=== PATIENT | male | born 1960 | race Caucasian/White ===

== ENCOUNTER 2017-07-12 10:31 | Emergency (ER) | payer MEDICARE ==
[2017-07-12] MEDS ORDERED: 0.9 % SODIUM CHLORIDE 1,000 ML BAG IV ONE (10:44)
[2017-07-12] MEDS ORDERED: ONDANSETRON HCL IV 4 MG/2 ML VIAL IVP ONE (10:52)
--- NOTE | 2017-07-12 10:53 | Emergency Department Record ---
History of Present Illness - General Chief Complaint: Abdominal Pain Stated Complaint: ABD PAIN Time Seen by Provider: 07/12/17 10:43 Source: Patient Mode of Arrival: Ambulatory Limitations: No limitations - History of Present Illness Initial Comments: 56 yo male presents with abdominal pain. The pain started started about 6 weeks ago. The onset included nausea, vomiting and loose stools. The symptoms initially came and went but over time became fairly constant. The last two weeks he has had very minimal appetite and any eating causes pain, nausea, vomiting. He is having stools daily with frequency. In the morning the stools seemed formed then become loose later in the day. He had his gall bladder removed about 5 years ago at [facility]. PCP is Blanca. Gall bladder was removed in [address] Gastelum. Complaint: Abdominal pain Onset/Timin -: Week(s) (6) Location: Diffuse Radiation: None Migration to: No migration Quality: Aching, Dull, Sharp, Stabbing Consistency: Constant Improves With: Nothing Worsens With: Eating Associated Symptoms: Diarrhea, Nausea, Vomiting - Related Data Home Medications Medication Instructions Recorded Confirmed Last Taken Baclofen [Lioresal] 10 mg PO DAILY PRN 07/12/17 07/12/17 Unknown Hydrocodone/Acetaminophen [Byars 1 each PO Q6H PRN 07/12/17 07/12/17 Unknown 10-325 Tablet] Allergies Allergy/AdvReac Type Severity Reaction Status Date / Time No Known Drug Allergies Allergy Verified 07/12/17 10:42 Travel Screening - Travel/Exposure Within Last 30 Days Have you traveled within the last 30 days?: No Review of Systems Constitutional: Reports: Malaise. Denies: Chills, Fever, Weakness Eyes: Denies: Eye discharge ENT: Denies: Congestion, Throat pain Respiratory: Denies: Cough, Dyspnea, Hemoptysis, Stridor, Wheezes Cardiovascular: Denies: Chest pain, Palpitations, Syncope Endocrine: Reports: Fatigue Gastrointestinal: Reports: As per HPI, Abdominal pain, Diarrhea, Nausea, Vomiting. Denies: Hematemesis, Hematochezia Genitourinary: Denies: Dysuria, Frequency Musculoskeletal: Reports: Arthralgia, Back pain Skin: Denies: Bruising, Change in color Neurological: Denies: Confusion, Headache, Numbness, Vertigo, Weakness Psychiatric: Denies: Anxiety Hematological/Lymphatic: Denies: Blood Clots, Easy bleeding, Easy bruising, Swollen glands Past Medical History - SOCIAL HISTORY Smoking Status: Current every day smoker Alcohol Use: Rare Drug Use: None - RESPIRATORY Hx Respiratory Disorders: Yes Hx Pneumonia: Yes Comment:: Left lung collapse - CARDIOVASCULAR Hx Cardio Disorders: No - NEURO Hx Neuro Disorders: No - GI Hx GI Disorders: No - Hx Genitourinary Disorders: No - ENDOCRINE Hx Endocrine Disorders: No - MUSCULOSKELETAL Hx Musculoskeletal Disorders: Yes Hx Back Injury: Yes - PSYCH Hx Psych Problems: No - HEMATOLOGY/ONCOLOGY Hx Hematology/Oncology Disorders: No Family Medical History Any Significant Family History?: Yes Hx Cancer: Grandparents Hx Diabetes: Brother/Sister Hx Heart Disease: Father Hx HTN: Mother Physical Exam - General General Appearance: Alert, Oriented x3, Cooperative, No acute distress Limitations: No limitations - Head Head exam: Atraumatic, Normocephalic, Normal inspection - Eye Eye exam: Normal appearance. negative: Conjunctival injection, Periorbital swelling - ENT ENT exam: Normal exam, Mucous membranes moist Ear exam: Normal external inspection Nasal Exam: Normal inspection Mouth exam: Normal external inspection - Neck Neck exam: Normal inspection - Respiratory Respiratory exam: Normal lung sounds bilaterally. negative: Respiratory distress - Cardiovascular Cardiovascular Exam: Normal rhythm, Normal heart sounds, Tachycardia Peripheral Pulses: 2+: Radial (R), Radial (L) - GI/Abdominal GI/Abdominal exam: Soft, Diminished bowel sounds (decreaed but present), Distended (softly distended and diffusely tender), Tenderness. negative: Mass, Rigid - Rectal Rectal exam: Deferred - exam: Deferred - Extremities Extremities exam: Normal inspection, Full ROM, Normal capillary refill. negative: Tenderness - Back Back exam: Reports: Normal inspection, Full ROM. Denies: Muscle spasm, Rash noted, Tenderness - Neurological Neurological exam: Alert, Normal gait, Oriented X3 - Psychiatric Psychiatric exam: Normal affect, Normal mood - Skin Skin exam: Dry, Intact, Normal color, Warm Course Vital Signs 07/12/17 10:36 Temperature 97.7 F Pulse Rate 116 H Respiratory 20 Rate Blood Pressure 136/93 Pulse Ox 97 - Reevaluation(s) Reevaluation #1: The labs were reviewed The CBC demonstrated a WBC of 8.4 with a Hgb of 11.8 The CMP demonstrated a K of 3.4, Normal AST, ALT and Alk Phos. The TBili was 1.6 with DBili of 0.6 The lipase was elevated at 220. Serum Glucose is 111. 07/12/17 11:[address] scan was reviewed. There are findings for cirrhosis, colitis, with moderate ascites. 07/12/17 14:06 07/12/17 14:42 I MICHAEL Martinez of at [facility] He accepts the patient for transfer and further work up for hsi new onset ascites. 07/12/17 14:53 Stool studies were negative and No WBC's noted as well. 07/12/17 14:53 PT/PTT Pending. 07/12/17 15:49 INR is 1.96 Medical Decision Making - Lab Data Result diagrams: 07/12/17 10:55 07/12/17 10:55 Disposition Disposition: Transfer Clinical Impression: Diarrhea Abdominal pain Qualifiers: Abdominal location: unspecified location Qualified Code(s): R10.9 - Unspecified abdominal pain Pancreatitis Qualifiers: Pancreatitis type: unspecified pancreatitis type Acute pancreatitis complication: unspecified Ascites Qualifiers: Ascites type: other type Qualified Code(s): R18.8 - Other ascites Disposition: Acute Care Hospital Transfer Transfer To: [facility] Reason For Transfer: New ascites, consultations, VAZQUEZ Accepting Physician: Juan Time Discussed w/Accepting Physician: 14:41 Condition: (1) Good Forms: Patient Portal Access Time of Disposition: 14:09 Quality - Quality Measures Quality Measures: N/A - Blood Pressure Screening Does Patient Have Any of the Following: No Blood Pressure Classification: Normal BP Reading Systolic Measurement: 108 Diastolic Measurement: 74 Screening for High Blood Pressure: < Normal BP, F/U Not Required > [G8783] Pre-Hypertensive Follow-up Interventions: Referral to alternative/primary care provider.
[2017-07-12 11:07] LABS: HEMATOCRIT 33.7 % (42.0-52.0); HEMOGLOBIN 11.5 gm/dl (14.0-18.0); MEAN CORPUSCULAR HGB CONC 34.1 g/dl (32-36); MEAN PLATELET VOLUME 9.5 fl (7.4-10.4); PLATELET COUNT 285 K/uL (130-400); RED BLOOD COUNT 3.18 M/uL (4.40-5.70); RED CELL DISTRIBUTION WIDTH 14.5 % (11.5-14.5); WHITE BLOOD COUNT W/O DIFF 8.4 K/uL (4.2-12.2)
[2017-07-12 11:09] LABS: MEAN CORPUSCULAR HEMOGLOBIN 36.1 pg (27-33)
[2017-07-12 11:15] LABS: PLATELET ESTIMATE NORMAL (NORMAL)
[2017-07-12 11:22] LABS: ALBUMIN 2.3 g/dL (4.0-5.0); ALKALINE PHOSPHATASE 123 U/L (40-129); ALT/SGPT 13 U/L (<41); AST/SGOT 30 U/L (10.0-50.0); BILIRUBIN,DIRECT 0.6 mg/dL (0-0.3); BLOOD UREA NITROGEN 7 mg/dL (6-20); CREATININE 0.4 mg/dL (0.7-1.2); EST GLOMERULAR FILTRATION RATE > 60 mL/min; GLUCOSE,RANDOM 111 mg/dL (74-109); LIPASE 220 U/L (13-60); TOTAL PROTEIN 7.2 g/dL (6.6-8.7)
[2017-07-12 12:09] LABS: CRYPTOSPORIDIUM PARVUM ANTIGEN NOT DETECTED (NOT DETECT); GIARDIA LAMBLIA ANTIGEN NOT DETECTED (NOT DETECT); ROTOVIRUS NOT DETECTED (NOT DETECT)
[2017-07-12 13:51] LABS: MOLECULAR C DIFF TOXIN SCREEN NOT DETECTED (NOT DETECT)
[2017-07-12 14:49] LABS: PARTIAL THROMBOPLASTIN TIME 26.3 SECONDS (24.5-39.1)
[2017-07-12 16:01] LABS: PROTHROMBIN TIME (PATIENT) 21.3 SECONDS (9.5-12.1)
[2017-07-12 16:02] LABS: INR 1.96
--- NOTE | 2017-07-13 14:12 | CT SCAN REPORT ---
EXAM: CT OF THE ABDOMEN AND PELVIS WITH CONTRAST HISTORY: GENERALIZED ABDOMINAL PAIN WITH DIARRHEA FOR SIX WEEKS. BLOATING. TECHNIQUE: Following oral and intravenous contrast administration, helical CT examination of the abdomen and pelvis was performed including delayed images through the kidneys with 100 ml of Omnipaque 300 utilized. Comparison: None. FINDINGS: There is minor linear scarring versus atelectasis in each lung base, left slightly greater than right. No pleural or pericardial effusion. The heart is not enlarged. A small hiatal hernia is present. There is a large volume of ascites with fluid in all four quadrants. The liver has a somewhat heterogeneous appearance and there may be mild micronodularity of the hepatic margins. Cirrhosis is possible. No definite focal hepatic mass is, however, seen. The spleen is not enlarged. There are calcifications scattered throughout the pancreas most pronounced in the pancreatic head where the largest calcification measures 15 mm. There is associated moderate to severe segmental dilatation of the pancreatic duct at the level of the head and neck. These findings are suspicious for chronic calcific pancreatitis. No gross biliary ductal dilatation is, however, seen with the common hepatic duct measuring 6.5 mm. The gallbladder is surgically absent. The adrenal glands and left kidney are normal in appearance. A small hypodense mass arising exophytically from the lateral mid to lower kidney is demonstrated , this measures 9.5 mm in diameter. It is too small for accurate characterization, but likely is a cyst. No gross intraabdominal nor retroperitoneal lymphadenopathy. There is mild atherosclerosis without aneurysmal dilatation of the abdominal aorta nor iliac arteries. A retroaortic left renal vein is present. No definite pelvic mass nor adenopathy. A somewhat oval/tubular calcific density is present in the right hemipelvis measuring 1.4 cm in diameter x 2.4 cm in length. This is likely a benign process. No intrinsic urinary bladder abnormality is seen though evaluation is limited by lack of distention. There is apparent mild wall thickening throughout the colon most pronounced in the sigmoid region raising suspicion for colitis. No extraluminal air is, however, seen. The appendix is visualized and normal in appearance. No gross bowel dilatation is seen nor worrisome air fluid level. No lytic or blastic bone lesion. There are posterior fusion changes involving the lower lumbar spine/lumbosacral junction. IMPRESSION: 1. LARGE VOLUME OF ASCITES. 2. APPARENT MILD WALL THICKENING THROUGHOUT THE COLON SUSPICIOUS FOR NONSPECIFIC COLITIS. 3. THE LIVER APPEARS SOMEWHAT HETEROGENEOUS WITH QUESTIONABLE MICRONODULAR MARGINS. THESE FINDINGS ARE SUSPICIOUS FOR CIRRHOSIS. NO SPLENOMEGALY THOUGH THERE MAY BE A FEW VARICES WITHIN THE LEFT UPPER QUADRANT. 4. ABNORMAL APPEARANCE OF THE PANCREAS, DETAILED ABOVE LIKELY RELATING TO CHRONIC CALCIFIC PANCREATITIS. 5. TOO SMALL TO CHARACTERIZE HYPODENSE LESION WITHIN THE RIGHT KIDNEY IS NONSPECIFIC, BUT LIKELY A CYST. 6. SMALL HIATAL HERNIA. JOB NUMBER: [id number] [facility]
== END 2017-07-12 16:21 | disposition short-term general hospital (02) ==
LOC: ER 10:31
DX: K85.90 Acute pancreatitis without necrosis or infection, unspecified (principal); R18.8 Other ascites; R11.2 Nausea with vomiting, unspecified; R19.7 Diarrhea, unspecified; R10.84 Generalized abdominal pain; Z79.899 Other long term (current) drug therapy
CPT/HCPCS: 99285 ×2; 96374; 83690; 87329; 85730; 85610; 80076; 80048; 89055; 87425; 82272; 87493; 85027; 74177; G0480; Q9967; J2405; 80320; J7030

== ENCOUNTER 2017-11-05 15:37 | Emergency (ER) | payer MEDICARE, MEDICAID ==
[2017-11-05] MEDS ORDERED: LIDOCAINE UROJECT 10 ML APPL MM ONE (16:10)
--- NOTE | 2017-11-05 16:10 | Emergency Department Record ---
History of Present Illness - General Chief complaint: Male Urogenital Problem Stated complaint: UTI? Time Seen by Provider: 11/05/17 15:45 Source: Patient Mode of Arrival: Ambulatory Limitations: No limitations - History of Present Illness Initial comments: The patient is here due to being unable to urinate for 3 days. He also is weaker than normal but denies any fever, chills, nausea, vomiting, or diarrhea. He does have a hx of liver dz and cirrhosis and did have a paracentesis yesterday at [facility]. The patient also had it done a month ago and was told he had a UTI at that time and did receive a week of macrobid. Complaint: Other Onset/Timin -: Days(s) Reports: Incontinence, Urinary retention - Related Data Home Medications Medication Instructions Recorded Confirmed Last Taken Methadone HCl 10 mg PO ASDIR 11/05/17 11/05/17 11/05/17 Omeprazole Magnesium [Prilosec Otc] 20 mg PO QHS 11/05/17 11/05/17 11/04/17 Prednisone [Prednisone 10Mg] 10 mg PO DAILY 11/05/17 11/05/17 11/04/17 Promethazine HCl [Phenergan] 25 mg PO ASDIR 11/05/17 11/05/17 Unknown Spironolactone [Aldactone] 100 mg PO DAILY 11/05/17 11/05/17 11/05/17 Allergies Allergy/AdvReac Type Severity Reaction Status Date / Time No Known Drug Allergies Allergy Verified 11/05/17 17:02 Travel Screening - Travel/Exposure Within Last 30 Days Have you traveled within the last 30 days?: No - Travel/Exposure Within Last Year Have you traveled outside the [place] in the last year?: No - Additonal Travel Details Have you been exposed to anyone with a communicable illness?: No - Travel Symptoms Symptom Screening: None Review of Systems Constitutional: Reports: Malaise. Denies: Chills, Fever Eyes: Denies: Eye discharge ENT: Denies: Congestion Respiratory: Denies: Cough, Dyspnea Past Medical History - SOCIAL HISTORY Smoking Status: Current every day smoker Alcohol Use: None Drug Use: Rare Drug Use Detail:: Marijuana - RESPIRATORY Hx Respiratory Disorders: Yes Hx Pneumonia: Yes Comment:: Left lung collapse - CARDIOVASCULAR Hx Cardio Disorders: No - NEURO Hx Neuro Disorders: No - GI Hx GI Disorders: Yes Hx Pancreatitis: Yes Comment:: possible cirrhosis - Hx Genitourinary Disorders: No - ENDOCRINE Hx Endocrine Disorders: No - MUSCULOSKELETAL Hx Musculoskeletal Disorders: Yes Hx Back Injury: Yes - PSYCH Hx Psych Problems: No - HEMATOLOGY/ONCOLOGY Hx Hematology/Oncology Disorders: No Family Medical History Any Significant Family History?: No Hx Cancer: Grandparents Hx Diabetes: Brother/Sister Hx Heart Disease: Father Hx HTN: Mother Physical Exam - General General Appearance: Alert, Oriented x3, Cooperative, No acute distress - Head Head exam: Atraumatic, Normocephalic, Normal inspection - Eye Eye exam: Normal appearance, PERRL - Neck Neck exam: Normal inspection, Full ROM. negative: Tenderness - Respiratory Respiratory exam: Normal lung sounds bilaterally. negative: Respiratory distress - Cardiovascular Cardiovascular Exam: Regular rate, Normal rhythm, Normal heart sounds, Tachycardia - GI/Abdominal GI/Abdominal exam: Soft, Normal bowel sounds. negative: Distended, Guarding, Hypoactive bowel sounds, Rigid, Tenderness - Extremities Extremities exam: Full ROM, Normal capillary refill. negative: Normal inspection (There is swelling to the R forearm where yesterday's IV was but there is no tenderness or warmth.), Tenderness - Neurological Neurological exam: Alert. negative: Motor sensory deficit Course Vital Signs 11/05/17 15:39 Temperature 98.1 F Pulse Rate 134 H Respiratory 20 Rate Blood Pressure 112/62 Pulse Ox 98 - Reevaluation(s) Reevaluation #1: The patient is doing much better at this time. His Vazquez did drain about 600 mls of urine and he is feeling much better. I did explain to him that his lab work indicates a significant infection and did recommend hospital admission to [facility] and the patient and family agreed. 11/05/17 17:19 Reevaluation #2: The patient is doing well at this time. He feels much better with the Vazquez catheter in place. I did discuss the case with Dr. Roa at [facility] and he does accept the patient in transfer. 11/05/17 17:38 Medical Decision Making - Data Complexity MDM Data: Labs Ordered and/or Reviewed, X-Ray Ordered and/or Reviewed, EKG Ordered and/or Reviewed - Lab Data Result diagrams: 11/05/17 16:30 11/05/17 16:30 - EKG Data -: EKG Interpreted by Me EKG: No Acute Changes (Sinus Tach at 125. Neg ischemic ST changes.) - Radiology Data Radiology results: Report reviewed (CXR: R pleural effusion.) Disposition Disposition: Transfer Clinical Impression: Sepsis Qualifiers: Sepsis type: sepsis due to unspecified organism Qualified Code(s): A41.9 - Sepsis, unspecified organism Disposition: Acute Care Hospital Transfer Transfer To: [facility] Reason For Transfer: Urosepsis Accepting Physician: Crispin Time Discussed w/Accepting Physician: 17:40 Condition: (2) Stable Forms: Patient Portal Access Time of Disposition: 17:40 Quality - Quality Measures Quality Measures: N/A - Blood Pressure Screening View Details: Yes Does Patient Have Any of the Following: No Blood Pressure Classification: Pre-Hypertensive BP Reading Systolic Measurement: 124 Diastolic Measurement: 68 Screening for High Blood Pressure: < Pre-Hypertensive BP, F/U Documented > [ G8950] Pre-Hypertensive Follow-up Interventions: Referral to alternative/primary care provider.
[2017-11-05] MEDS ORDERED: 0.9 % SODIUM CHLORIDE 1,000 ML BAG IV ONE ×3 (16:25→18:37)
[2017-11-05 16:39] LABS: HEMATOCRIT 28.8 % (42.0-52.0); HEMOGLOBIN 9.6 gm/dl (14.0-18.0); MEAN CORPUSCULAR HGB CONC 33.3 g/dl (32-36); MEAN PLATELET VOLUME 8.9 fl (7.4-10.4); PLATELET COUNT 314 K/uL (130-400); RED CELL DISTRIBUTION WIDTH 16.1 % (11.5-14.5)
[2017-11-05 16:41] LABS: URINE APPEARANCE SL CLOUDY; URINE BILIRUBIN NEGATIVE (NEGATIVE); URINE BLOOD TRACE-I (NEGATIVE); URINE COLOR YELLOW; URINE GLUCOSE (UA) NEGATIVE (NEGATIVE); URINE KETONE NEGATIVE (NEGATIVE); URINE LEUKOCYTE ESTERASE NEGATIVE (NEGATIVE); URINE NITRITE NEGATIVE (NEGATIVE); URINE PROTEIN NEGATIVE (NEGATIVE); URINE UROBILINOGEN 0.2 E.U./dL (0.20 - 1.00)
[2017-11-05 16:48] LABS: WHITE BLOOD COUNT W/O DIFF 35.1 K/uL (4.2-12.2)
[2017-11-05 16:52] LABS: URINE BACTERIA 4+; URINE EPITHELIAL CELLS 0 - 2 (FEW); URINE RBC 0 - 2 (NONE SEEN); URINE WBC 0 - 2 (0-2/hpf)
[2017-11-05] MEDS ORDERED: CEFTRIAXONE SODIUM 1 GM in 0.9 % SODIUM CHLORIDE 100ML 100 ML IVPB ONE (16:56)
[2017-11-05 16:59] LABS: INR 1.2; PARTIAL THROMBOPLASTIN TIME 30.9 SECONDS (24.5-39.1); PROTHROMBIN TIME (PATIENT) 12.7 SECONDS (9.5-12.1)
[2017-11-05 17:09] LABS: BLOOD UREA NITROGEN 13 mg/dL (6-20); CREATININE 0.8 mg/dL (0.7-1.2); EST GLOMERULAR FILTRATION RATE > 60 mL/min
[2017-11-05 17:10] LABS: TOTAL PROTEIN 6.6 g/dL (6.6-8.7)
[2017-11-05 17:12] LABS: GLUCOSE,RANDOM 111 mg/dL (74-109)
[2017-11-05 17:14] LABS: ALT/SGPT 23 U/L (<41); BILIRUBIN,DIRECT 0.4 mg/dL (0-0.3)
[2017-11-05 17:15] LABS: ALBUMIN 2.3 g/dL (4.0-5.0); ALKALINE PHOSPHATASE 137 U/L (40-129); AST/SGOT 65 U/L (10.0-50.0)
[2017-11-05] MEDS ORDERED: LEVOFLOXACIN 500MG IVPB 500 MG/100 ML BAG IVPB ONE (18:01)
--- NOTE | 2017-11-06 15:22 | RADIOLOGY REPORT ---
DATE: 11/05/2017. EXAM: TWO-VIEW, CHEST. HISTORY: Difficulty breathing. COMPARISON: 05/13/2016 initial. TECHNIQUE: Frontal and lateral views of the chest were performed. FINDINGS: Heart size is normal. There are bilateral lower lobe infiltrates. Findings are improved when compared to the prior examination dated 05/13/2016. IMPRESSION: BILATERAL LOWER LOBE INFILTRATES. FINDINGS ARE IMPROVED WHEN COMPARED TO THE PRIOR EXAMINATION. JOB NUMBER: [id number] MTDD
== END 2017-11-05 19:19 | disposition short-term general hospital (02) ==
LOC: ER 15:37
DX: A41.9 Sepsis, unspecified organism (principal); R33.9 Retention of urine, unspecified; R06.00 Dyspnea, unspecified; R53.1 Weakness; K74.60 Unspecified cirrhosis of liver; F17.210 Nicotine dependence, cigarettes, uncomplicated
CPT/HCPCS: 71046; 80048; 80076; 81001; 82140; 85027; 85610; 85730; 93005; 93010; 96365; 96366; 96368; 99285; J1956; J7030

== ENCOUNTER 2019-03-15 10:21 | Day surgery (SDC) | payer MEDICARE ==
--- NOTE | 2019-03-15 06:49 | History and Physical - Ferro ---
CHIEF COMPLAINT/HISTORY OF CHIEF COMPLAINT: This patient presents with a history of a post lumbar laminectomy radiculopathy. Due to the failure of all therapy, a spinal cord stimulator trial was conducted on 02/21/19 with 75-95% pain control. Due to the failure of all other therapies and the success of the trial, the patient presents today for implantation of a permanent system. PAST MEDICAL HISTORY: Chronic headaches and degenerative arthritis. PAST SURGICAL HISTORY: Foot surgery, lumbar spinal surgery, gallbladder surgery, hand surgery, and eye surgery. EMPLOYMENT STATUS: Not identified. MEDICATIONS ON ADMISSION: List to be provided. ALLERGIES: None. FAMILY/PSYCHOSOCIAL HISTORY: Social history - Caffeine. Family history - Noncontributory. SYSTEMS REVIEW: The patient seems appropriate in no acute distress. PHYSICAL EXAMINATION: Height is 6'1", weight is 140. No vital signs. HEENT: Within normal limits. LUNGS: Clear. HEART: Rapid and regular. ABDOMEN: Nontender. MUSCULOSKELETAL: Examination of the musculoskeletal system shows diffuse tenderness throughout the lumbar spine. Range of motion produces pain across the back adjacent to the laminectomy scar. Range of motion produces pain into both legs across the front and back surface. There are mild motor and sensory abnormalities to both legs. Ambulation - No assistive device utilized. NEUROLOGIC: Cranial nerves are intact. 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 PLAN: After the failure of all other therapies and the success of the stimulator trial, the patient presents today for implantation of a permanent system. The procedure will be considered outpatient although an overnight stay will be evaluated. The potentials risks, side effects and complications have all been carefully reviewed and discussed. J[facility]: [id number] [facility]
[~2019-03-15 10:21] MED LIST: CEFAZOLIN 2 Gram 2 GM/50 ML BAG IVPB ONE; FAMOTIDINE 20MG TABLET PO ONE; MECLIZINE 25 MG TABLET PO ONE; METOCLOPRAMIDE 10 MG TABLET PO ONE
[2019-03-15] MEDS ORDERED: LIDOCAINE 2% MDV (20MG/ML) 20ML VIAL IV ONE (10:22)
[2019-03-15] MEDS ORDERED: PROPOFOL 10 MG/ML VIAL IV ONE (10:22)
[2019-03-15] MEDS ORDERED: ESMOLOL HCL 100 MG/10 ML ML IVP ONE (10:22)
[2019-03-15] MEDS ORDERED: FENTANYL PF 100MCG/2ML VIAL IV ONE (10:22)
[2019-03-15] MEDS ORDERED: MIDAZOLAM HCL 2MG/2ML VIAL IV ONE (10:22)
[2019-03-15] MEDS ORDERED: RINGERS SOLUTION,LACTATED 1,000 ML IV ONE (11:07)
[2019-03-15 11:08] LABS: INR 1.1; PARTIAL THROMBOPLASTIN TIME 26.3 SECONDS (24.5-39.1)
[2019-03-15] MEDS ORDERED: CEFAZOLIN 0.5 G in 0.9 % SODIUM CHLORIDE 1000ML 500 ML IVP ONE (12:41)
[2019-03-15] MEDS ORDERED: BUPIVACAINE 0.5% W/EPI MPF 30 ML VIAL SQ ONE (12:52)
[2019-03-15] MEDS ORDERED: LIDOCAINE 1% W/EPI 1:100,000 MDV 20 ML VIAL SQ ONE (12:52)
[2019-03-15] MEDS ORDERED: OXYCODONE/APAP 10MG-325MG TABLET PO ONE (14:09)
--- NOTE | 2019-03-17 12:41 | RADIOLOGY REPORT ---
EXAM: THORACOLUMBAR SPINE, ONE VIEW HISTORY: STATUS POST SPINAL CANAL STIMULATOR IMPLANT. TECHNIQUE: A single AP portable supine view of the spine was obtained including the thoracic and upper lumbar portions. Comparison: Two views of the thoracic spine dated 02/28/19. FINDINGS: There are two intraspinal stimulator leads in place. These likely enter the spinal canal at the L1 level. The lead tips project at the superior T7 vertebral body level. No acute osseous abnormality identified. No lytic or blastic bone lesion. There are degenerative changes scattered throughout the visualized spine. IMPRESSION: TWO INTRASPINAL STIMULATOR LEADS IN PLACE WITH LEAD TIPS AT THE UPPER T7 LEVEL. JOB NUMBER: [id number] MTDD
--- NOTE | 2019-03-20 08:50 | Operative Note ---
DATE OF SERVICE: 03/15/2019. DATE OF SURGERY: 03/15/2019. PRIMARY: Michael Franco Jr., MD. 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 OPERATION: 1. Fluoroscopic-guided epidural access, left T11-12, placement of spinal cord stimulator Lead 1, [employer] Infinion 16, 6 electrodes, positioned left T7. 2. Fluoroscopic-guided epidural access, left T12-L1, placement of spinal cord stimulator Lead 2, [employer] Infinion 16, 6 electrodes, positioned right T7. 3. Complex programming of Lead 1 over 20 minutes, followed by complex programming of Lead 2 over 20 minutes. 4. Incision, sub dissection, anchoring Lead 1 and Lead 2 to supraspinous fascia with a [employer] locking anchor and nonabsorbable suture. 5. Incision, subcutaneous dissection, and creation of subcutaneous pouch at left posterior gluteal margin for placement of generator, identified as [employer] programmable, rechargeable WaveWriter. 6. Tunneling between lead pouch and generator pouch, placement of the external portion of Lead 1 and Lead 2 into generator pouch, each lead interfaced to generator. 7. Closure of both incisions with generator placed into pouch, leads placed into the pouch, using Stratafix suture, 2-0 fascia, 3-0 skin, Dermabond closure. 8. Complex recovery room programming, internal generator, home use, 2 stimulators, 20 minutes. SURGEON: Jean Jarquin DO. ANESTHESIA: Local sedation. ANESTHESIA PROVIDER: Christiano Gupta C.R.N.A INDICATION: This patient presents with a history of an intractable post lumbar laminectomy syndrome with a radiculopathy. Due to the failure of all therapies, a spinal cord stimulator trial was conducted with 75-85% pain control. Due to the failure of all therapy and the success of the trial, the patient presents today for implantation of a permanent system. PROCEDURE: Intravenous line, vital sign monitoring, IV sedation, prepped and draped, sterile technique. Patient positioned prone. Sterile prep, sterile technique. Under imaging, the epidural interspace from left of the midline at 11-12 and 12-1 were both identified, marked, and infiltrated using 2 separate curved access Epimed needles. With loss of resistance, the space was accessed. Atraumatic. No blood. No CSF. At T11-12, spinal cord stimulator Lead 1, a [employer] Infinion 16, 6 electrodes positioned left of midline at T7. With the access at 12-1, spinal cord stimulator Lead 2, also a [employer] Infinion 16 with 6 electrodes, was positioned right of the midline at T7. Complex programming of Lead 1 over 20 minutes, followed by complex programming of Lead 2 over 20 minutes resulted in complete pattern stimulation across the back, into the legs. Patient indicated we hit all the areas of the pain. He was given the option to implant, continue to program, or remove. He opted to implant. Question was repeated with the same response. The skin above and below both needles was infiltrated with local. Then an incision was made. Subcutaneous dissection conducted to the supraspinous fascia. The needles were removed. Then each lead was anchored to the supraspinous fascia with a [employer] locking anchor and nonabsorbable suture. At the left posterior gluteal margin, a site actually picked by the patient for the generator, skin infiltrated, an incision made, and subcutaneous dissection was conducted to form a pouch of suitable size and depth for the generator, a [employer] programmable, rechargeable WaveWriter. After the subcutaneous pouch was formed to a suitable depth, a tunneling tool was used to carry the leads into the generator pouch, and each lead was interfaced to the generator. Antibiotic irrigation and Bovie hemostasis of both sites. The generator was placed into the pouch. Both leads were placed into their own pouch, and then both incisions were closed using Stratafix suture, 2-0 fascia, 3-0 skin. A Dermabond closure was then used over each. He was transported to the recovery room stable. There were no side effects from the procedure or sedation. When fully awake and alert, complex programming of the internal generator in the recovery room over 20 minutes performed, reestablishing stimulation, pain control to all the appropriate areas. He was instructed on the use of the system, provided thorough information on error messaging, and then prepared for discharge. DISCHARGE INSTRUCTIONS: 1. Sites will remain clean and dry. No showering or bathing in any way that would disrupt dressings. If it happens, contact the clinic. 2. Standard medications resumed, including the antibiotic Levaquin 500 mg once a day for 14 days. 3. The office is to contact the patient at home to set up a time in the next 7- 10 days for us to evaluate the incisions. Until then, he is to keep his activities low. 4. All other instructions provided. Numbers to contact with problems given. He was then discharged. CC: DO Michael Ramos Jr., MD MTDD
== END 2019-03-15 14:27 | disposition home or self-care (01) ==
LOC: SUR 10:21
PROVIDERS: ATTEND Pain Medicine Interventional Pain Medicine
DX: M96.1 Postlaminectomy syndrome, not elsewhere classified (principal); M54.16 Radiculopathy, lumbar region; M54.17 Radiculopathy, lumbosacral region; K85.90 Acute pancreatitis without necrosis or infection, unspecified
CPT/HCPCS: 36416; 72020; 82948; 85002; 85610; 85730; 95972; C1820; C1883; J0690; J7030; J7120